=== PATIENT | male | born 1970 | race Caucasian/White ===

== ENCOUNTER 2024-01-20 13:55 | Inpatient (IN) | payer OTHER ==
[2024-01-20 14:27] VITALS: BMI 22.6
[2024-01-20] MEDS ORDERED: MAGNESIUM HYDROX 2400MG/30ML ORAL SUSPENSION 30 ML CUP PO PRN (14:57)
[2024-01-20] MEDS ORDERED: ONDANSETRON *ODT* 4 MG TABLET SL PRN (14:57)
[2024-01-20] MEDS ORDERED: DICYCLOMINE HCL 10 MG CAPSULE PO PRN (14:57)
[2024-01-20] MEDS ORDERED: POLYETHYLENE GLYCOL (HEALTHYLAX) 3350 17 GM PACKET PO PRN (14:57)
[2024-01-20] MEDS ORDERED: guaiFENesin 600 MG TABLET.ER (FP) PO PRN (14:57)
[2024-01-20] MEDS ORDERED: IBUPROFEN 600 MG TABLET (FP) PO PRN (14:57)
[2024-01-20] MEDS ORDERED: BENZONATATE 200 MG CAPSULE PO PRN (14:57)
[2024-01-20] MEDS ORDERED: LOPERAMIDE HCL 2 MG CAPSULE PO PRN (14:57)
[2024-01-20] MEDS ORDERED: BENZOCAINE/MENTHOL (CHLORASEPTIC ) LOZENGE MM PRN (14:57)
[2024-01-20] MEDS ORDERED: ACETAMINOPHEN 325 MG TABLET (FP) PO PRN (14:57)
[2024-01-20] MEDS ORDERED: diazePAM 5 MG TABLET PO PRN (14:57)
[2024-01-20] MEDS ORDERED: NALOXONE (NARCAN) HCL 4 MG/0.1 ML SPRAY NS PRN (14:57)
[2024-01-20] MEDS ORDERED: MAG HYDROX/AL HYDROX/SIMETH 30 ML UNIT-DOSE CUP PO PRN (14:57)
[2024-01-20] MEDS ORDERED: BISMUTH SUBSALICYLATE 262 MG/15 ML BTL PO PRN (14:57)
[2024-01-20] MEDS ORDERED: PRENATAL VITAMINS W/ FOLIC ACID TABLET (FP) PO ONE (15:13)
[2024-01-20] MEDS: PRENATAL VITAMINS W/ FOLIC ACID TABLET (FP) PO SCH (15:15)
[2024-01-20] MEDS: METOPROLOL TARTRATE 25 MG TABLET (FP) PO ONE (15:59)
[2024-01-20] MEDS: diazePAM 5 MG TABLET PO SCH (17:25)
[2024-01-20] MEDS: METHOCARBAMOL 500 MG TABLET PO PRN (17:27)
[2024-01-20] MEDS: IBUPROFEN 400 MG TABLET (FP) PO PRN (17:27)
[2024-01-20] MEDS: MELATONIN 5 MG TABLETS PO SCH (22:19)
[2024-01-20] MEDS: THIAMINE 100 MG TABLET PO SCH (22:19)
[2024-01-21 12:10] LABS: HEMOGLOBIN 14.3 GM/dL (11.7-16.9); MCH 32.9 pg (25.7-33.7); MCHC 34.9 g/dl (32.0-35.9); MEAN CELL VOLUME 94.4 fl (80-96); MEAN PLT VOLUME 9.3 fl (7.5-11.1); PLATELET COUNT 154 10^3/uL (134-434); RBC 4.34 M/mm3 (4.00-5.60); RDW 12.2 % (11.9-15.9); WHITE BLOOD COUNT 6.3 K/mm3 (4.0-10.0)
[2024-01-21 12:10] LABS: CHLORIDE 99 mmol/L (98-107); POTASSIUM 4.4 mmol/L (3.5-5.1); SODIUM 134 mmol/L (136-145)
[2024-01-21 12:14] LABS: ALBUMIN 3.9 g/dl (3.4-5.0); ANION GAP 10 mmol/L (4-13); BLOOD UREA NITROGEN 7.8 mg/dL (7-18); CO2 25 mmol/L (21-32); GLUCOSE,RANDOM 141 mg/dL (74-106)
[2024-01-21 12:17] LABS: SGOT/AST 135 U/L (15-37); SGPT/ALT 109 U/L (13-61)
[2024-01-21 12:19] LABS: BILIRUBIN,TOTAL 1.9 mg/dL (0.2-1)
[2024-01-21 12:20] LABS: ALK PHOS 89 U/L (45-117)
[2024-01-22] MEDS: diazePAM 5 MG TABLET PO SCH (05:42)
[2024-01-23] MEDS: diazePAM 5 MG TABLET PO SCH (05:55)
[2024-01-24] MEDS: diazePAM 5 MG TABLET PO ONE (05:55)
[2024-01-24] MEDS: hydrOXYzine PAMOATE 25 MG CAPSULE (FP) PO PRN (12:16)
[2024-01-25] MEDS: diazePAM 5 MG TABLET PO ONE (05:52)
[2024-01-25 08:59] VITALS: BP 110/76; PULSE 90; RESP 17; TEMP 97.6
[2024-01-25] MEDS: NALOXONE (NYS OPIOID OVERDOSE PROGRAM) 4 MG/0.1 ML SPRAY NS PRN (11:20)
== END 2024-01-25 12:08 | disposition other institution (70) | DRG 775 ==
LOC: YASAS 13:55 → Y6N 15:14
PROVIDERS: ADMIT Allergy & Immunology; ATTEND Surgery
PROC: HZ2ZZZZ Detoxification Services for Substance Abuse Treatment (ICD-10-PCS; principal; 2024-01-20)
DX: F10.230 Alcohol dependence with withdrawal, uncomplicated (principal); F12.20 Cannabis dependence, uncomplicated; F32.A Depression, unspecified; F41.9 Anxiety disorder, unspecified; R74.01 Elevation of levels of liver transaminase levels
CPT/HCPCS: 36415; 80053; 80305; 80307; 84450; 85027; 86780; 87811; 93005; 93010

== ENCOUNTER 2024-01-25 12:20 | Inpatient (IN) | payer OTHER ==
[2024-01-25] MEDS ORDERED: NALOXONE (NARCAN) HCL 4 MG/0.1 ML SPRAY NS PRN (14:07)
[2024-01-25] MEDS ORDERED: POLYETHYLENE GLYCOL (HEALTHYLAX) 3350 17 GM PACKET PO PRN (14:07)
[2024-01-25] MEDS ORDERED: MAGNESIUM HYDROX 2400MG/30ML ORAL SUSPENSION 30 ML CUP PO PRN (14:07)
[2024-01-25] MEDS ORDERED: IBUPROFEN 400 MG TABLET (FP) PO PRN (14:07)
[2024-01-25] MEDS ORDERED: guaiFENesin 600 MG TABLET.ER (FP) PO PRN (14:07)
[2024-01-25] MEDS ORDERED: BENZONATATE 200 MG CAPSULE PO PRN (14:07)
[2024-01-25] MEDS ORDERED: NICOTINE POLACRILEX 4 MG GUM BUC PRN (14:07)
[2024-01-25] MEDS ORDERED: LOPERAMIDE HCL 2 MG CAPSULE PO PRN (14:07)
[2024-01-25] MEDS ORDERED: NICOTINE 14 MG/24 HOURS TOPICAL PATCH TD PRN (14:07)
[2024-01-25] MEDS ORDERED: BENZOCAINE/MENTHOL (CHLORASEPTIC ) LOZENGE MM PRN (14:07)
[2024-01-25] MEDS ORDERED: NICOTINE POLACRILEX 4 MG LOZENGE BC PRN (14:07)
[2024-01-25] MEDS ORDERED: NALOXONE HCL 0.4 MG/ML VIAL IVPUSH PRN (14:07)
[2024-01-25] MEDS ORDERED: MAG HYDROX/AL HYDROX/SIMETH 30 ML UNIT-DOSE CUP PO PRN (14:07)
[2024-01-25] MEDS: IBUPROFEN 600 MG TABLET (FP) PO PRN (18:02)
[2024-01-25] MEDS: MELATONIN 5 MG TABLETS PO SCH (21:34)
[2024-01-25] MEDS: THIAMINE 100 MG TABLET PO SCH (21:34)
[2024-01-26] MEDS: PRENATAL VITAMINS W/ FOLIC ACID TABLET (FP) PO SCH (10:21)
[2024-01-26] MEDS: METHOCARBAMOL 500 MG TABLET PO PRN (12:40)
[2024-01-27] MEDS ORDERED: NALOXONE (NYS OPIOID OVERDOSE PROGRAM) 4 MG/0.1 ML SPRAY NS PRN (08:12)
[2024-01-27] MEDS: NALOXONE (NARCAN) HCL 4 MG/0.1 ML SPRAY NS ONE (09:10)
[2024-01-27] MEDS: ACETAMINOPHEN 325 MG TABLET (FP) PO PRN (15:57)
[2024-02-01] MEDS: METHOCARBAMOL 500 MG TABLET PO PRN (21:36)
[2024-02-03] MEDS: hydrOXYzine PAMOATE 25 MG CAPSULE (FP) PO PRN (15:12)
[2024-02-06 06:51] VITALS: BP 113/74; PULSE 78; RESP 17; TEMP 97.4
[2024-02-06] MEDS: NALOXONE (NYS OPIOID OVERDOSE PROGRAM) 4 MG/0.1 ML SPRAY NS SCH (08:59)
== END 2024-02-06 09:30 | disposition home or self-care (01) | DRG 772 ==
LOC: YASAS 12:20 → Y3E 12:22
PROVIDERS: ADMIT Psychiatry & Neurology Pain Medicine; ATTEND Psychiatry & Neurology Pain Medicine
PROC: HZ42ZZZ Group Counseling for Substance Abuse Treatment, Cognitive-Behavioral (ICD-10-PCS; principal; 2024-01-25)
DX: F10.20 Alcohol dependence, uncomplicated (principal); F12.20 Cannabis dependence, uncomplicated; F41.9 Anxiety disorder, unspecified; F32.A Depression, unspecified
CPT/HCPCS: 36415; 82140; 82962; 86803